=== PATIENT | male | born 1975 | race American Indian/Alaskan Native ===

== ENCOUNTER 2016-05-17 13:33 | Emergency (ER) | payer OTHER ==
[2016-05-17 13:48] VITALS: BP 133/95
[2016-05-17] MEDS ORDERED: MOTRIN PO ONE (14:45)
[2016-05-17] MEDS ORDERED: BOOSTRIX IM ONE (14:45)
[2016-05-17] MEDS ORDERED: TRIPLE ANTIBIOTIC TP ONE (14:45)
[2016-05-17] MEDS ORDERED: AUGMENTIN 875 MG PO ONE (14:45)
--- NOTE | 2016-05-17 14:46 | Emergency Department Report ---
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 They were attempting to remove dog from perpetrator and dog acted aggressively and bit officer's left lower extremity and mid gant region. As per police guard he verified with K-9 unit that the dog has had all of its vaccinations including rabies. Patient states that dog bite went through his pants. Denies any injuries to any other area unsure of tetanus status. Incident already reported to his police unit Complaint: animal bite Onset/Timin -: hour(s) Location: other Left: Leg (multiple abrasions and small puncture wounds to left lower extremity) Animal: dog Animal Control Notified: Yes Description: appeared well Mechanism: bite Pain Description: sharp Severity scale (0 -10): 6 Context: other (dog is police canine who was attempting to restrain a perpetrator that police guard was chasing) Associated Symptoms: none - Related Data Patient Tetanus UTD: No Previous Rx's Medication Instructions Recorded Last Taken Type Amoxicillin/K Clav Tab [Augmentin 1 tab PO Q12HR #20 tab 05/17/16 Unknown Rx 875 mg] Ibuprofen [Motrin] 600 mg PO Q8H PRN #30 tablet 05/17/16 Unknown Rx Neomycn/Baci Zn/Pmyx Bs/Pramox 28 gm TP BID #1 oint...g. 05/17/16 Unknown Rx [Triple Antibioti-Pain Rlf Oint] Allergies Allergy/AdvReac Type Severity Reaction Status Date / Time No Known Allergies Allergy Unverified 05/17/16 13:45 ED Review of Systems ROS: Stated complaint: K9 BITE/LEFT LEG Other details as noted in HPI Constitutional: denies: chills, fever Eyes: denies: eye pain, eye discharge, vision change ENT: denies: ear pain, throat pain Respiratory: denies: cough, shortness of breath, wheezing Cardiovascular: denies: chest pain, palpitations Endocrine: no symptoms reported Gastrointestinal: denies: abdominal pain, nausea, diarrhea Genitourinary: denies: urgency, dysuria Musculoskeletal: denies: back pain, joint swelling, arthralgia Skin: denies: rash, lesions Neurological: denies: headache, weakness, paresthesias Psychiatric: denies: anxiety, depression Hematological/Lymphatic: denies: easy bleeding, easy bruising ED Past Medical Hx - Past Medical History Previous Medical History?: No - Surgical History Past Surgical History?: No - Social History Smoking Status: Never Smoker Substance Use Type: Alcohol - Medications Home Medications: Home Medications Medication Instructions Recorded Confirmed Last Taken Type Amoxicillin/K Clav Tab [Augmentin 1 tab PO Q12HR #20 tab 05/17/16 Unknown Rx 875 mg] Ibuprofen [Motrin] 600 mg PO Q8H PRN #30 tablet 05/17/16 Unknown Rx Neomycn/Baci Zn/Pmyx Bs/Pramox 28 gm TP BID #1 oint...g. 05/17/16 Unknown Rx [Triple Antibioti-Pain Rlf Oint] ED Physical Exam - General Limitations: No Limitations General appearance: alert, in no apparent distress - Head Head exam: Present: atraumatic, normocephalic - Eye Eye exam: Present: normal appearance, PERRL, EOMI - ENT ENT exam: Present: mucous membranes moist - Neck Neck exam: Present: normal inspection - Respiratory Respiratory exam: Present: normal lung sounds bilaterally. Absent: respiratory distress - Cardiovascular Cardiovascular Exam: Present: regular rate, normal rhythm. Absent: systolic murmur, diastolic murmur, rubs, gallop - GI/Abdominal GI/Abdominal exam: Present: soft, normal bowel sounds - Rectal Rectal exam: Present: deferred - Extremities Exam Extremities exam: Present: normal inspection - Expanded Lower Extremity Exam Left Hip exam: Present: normal inspection, full ROM Upper Leg exam: Present: normal inspection, full ROM Knee exam: Present: normal inspection, full ROM Lower Leg exam: Present: tenderness, abrasion (multiple small puncture wounds and multiple abrasions to left anterior gant region) - Back Exam Back exam: Present: normal inspection - Neurological Exam Neurological exam: Present: alert, oriented X3 - Psychiatric Psychiatric exam: Present: normal affect, normal mood - Skin Skin exam: Present: warm, dry, intact, normal color. Absent: rash ED Course Vital Signs 05/17/16 05/17/16 05/17/16 13:45 15:06 15:43 Temperature 99.0 F Pulse Rate 104 H 94 H Respiratory 18 14 Rate Blood Pressure 133/95 O2 Sat by Pulse 96 Oximetry Critical care attestation.: If time is entered above; I have spent that time in minutes in the direct care of this critically ill patient, excluding procedure time. A/P: Dog bite left lower extremity 1-empiric coverage with Augmentin 2-Motrin when necessary for pain 3-I cleaned area with povidone-iodine iodine and normal saline, wound was dressed with triple antibiotic ointment and gauze 4-as per police guard he checked in with his supervisor coffee who contacted [facility] unit for specific canine had all its vaccinations a report was made within the police department 5-advised officer that he sees any erythema or pus drainage from site despite use of antibiotics and daily wound dressings and changes to return to the ED 6- tetanus updated today ED Disposition Clinical Impression: Abrasion Animal bite of left lower leg Qualifiers: Encounter type: initial encounter Qualified Code(s): S81.852A - Open bite, left lower leg, initial encounter Disposition: DISCHARGED TO HOME OR SELFCARE Is pt being admited?: No Does the pt Need Aspirin: No Condition: Stable Instructions: Diphtheria/Tetanus Vaccine (Injection), Animal Bite (ED), Abrasion (ED) Prescriptions: Amoxicillin/K Clav Tab [Augmentin 875 mg] 1 tab PO Q12HR #20 tab Ibuprofen [Motrin] 600 mg PO Q8H PRN #30 tablet PRN Reason: Pain Neomycn/Baci Zn/Pmyx Bs/Pramox [Triple Antibioti-Pain Rlf Oint] 28 gm TP BID #1 oint...g. Referrals: PRIMARY CARE, [Primary Care Provider] - 3-5 Days
== END 2016-05-17 15:41 | disposition home or self-care (01) ==
LOC: ED 13:33
DX: S81.852A Open bite, left lower leg, initial encounter (principal); S80.812A Abrasion, left lower leg, initial encounter; W54.0XXA Bitten by dog, initial encounter; Y93.9 Activity, unspecified; Y92.9 Unspecified place or not applicable; Y99.9 Unspecified external cause status
CPT/HCPCS: 90471; 90715; 99282; A6250